=== PATIENT | male | born 1965 | race Hispanic/Latino ===

== ENCOUNTER 2018-03-15 06:51 | Day surgery (SDC) | payer MEDICAID ==
[2018-03-09 10:38] VITALS: BMI 23.2
[2018-03-15] MEDS ORDERED: Lidocaine 2 GM Vial 2 GM/50 ML VIAL IV ONE (08:09)
[2018-03-15] MEDS ORDERED: Propofol 10 mg/ml Inj (20 ML) ONE (08:10)
[2018-03-15] MEDS ORDERED: Sodium Chloride 0.9% 1,000 ML IV SCH (09:00)
[2018-03-15 09:03] VITALS: O2SAT 99
[2018-03-15 09:33] VITALS: BP 125/94; PULSE 72; RESP 16; TEMP 98.3
== END 2018-03-15 10:04 | disposition home or self-care (01) ==
LOC: ENDO 06:51
PROVIDERS: ATTEND Internal Medicine Gastroenterology
DX: Z12.11 Encounter for screening for malignant neoplasm of colon (principal); D12.5 Benign neoplasm of sigmoid colon; K63.5 Polyp of colon; K64.8 Other hemorrhoids; K63.89 Other specified diseases of intestine; Z80.0 Family history of malignant neoplasm of digestive organs